=== PATIENT | male | born 1980 | race Caucasian/White ===

== ENCOUNTER 2021-04-02 13:32 | Emergency (ER) | payer SELFPAY ==
[~2021-04-02] VITALS: Ht 154.9 cm; Wt 9.1 kg
[2021-04-02 13:40] VITALS: BP_SYST 124
--- NOTE | 2021-04-02 14:31 | NUR ---
Patient to ER bed H1 to gown for evaluation. Side rails up.
--- NOTE | 2021-04-02 14:31 | NUR ---
PT CAME IN FROM HOME REQUESTING RX REFILL OF CELEXA 10MG AND ATORVASTATIN 20MG. PT IS AMBULATORY, [id number], VSS
--- NOTE | 2021-04-02 15:02 | NUR ---
Dr guerrero evaluating patient at bedside
[2021-04-02] MEDS ORDERED: ATOR20TA64 PO (15:06)
[2021-04-02] MEDS ORDERED: CEL20 PO (15:06)
[2021-04-02 15:15] VITALS: BP_SYST 124
--- NOTE | 2021-04-02 15:16 | NUR ---
Patient given written and verbal discharge instructions and verbalizes understanding. ER MD discussed with patient the results and treatment provided. Patient in stable condition. ID arm band removed. Rx of Atorvastatin and Citalopram given. Patient educated on pain management and to follow up with PMD. Pain Scale 0/10. Opportunity for questions provided and answered. Medication side effect fact sheet provided.
== END 2021-04-02 15:15 | disposition home or self-care (01) ==
LOC: SED 13:32
DX: F32.9 Major depressive disorder, single episode, unspecified (principal); I10 Essential (primary) hypertension; Z76.0 Encounter for issue of repeat prescription
CPT/HCPCS: 99281

== ENCOUNTER 2021-04-16 14:16 | Emergency (ER) | payer MEDICAID ==
[~2021-04-16] VITALS: Ht 157.5 cm; Wt 90.7 kg
[~2021-04-16 14:16] MED LIST: ATOR20TA64 PO; CEL20 PO
[2021-04-16 14:18] VITALS: BP_SYST 119
[2021-04-16 16:03] LABS: PROTHROMBIN TIME 9.9 SECS (9.5-12.5)
[2021-04-16 16:12] LABS: BASOPHILS % (AUTO) 0.5 % (0.0-2.0); EOSINOPHILS # (AUTO) 0.1 K/uL (0.0-0.4); EOSINOPHILS % (AUTO) 1.1 % (0.0-4.0); HEMOGLOBIN 13.4 g/dL (12.0-16.0); LYMPHOCYTES # (AUTO) 1.9 K/uL (1.0-5.5); LYMPHOCYTES % (AUTO) 23.6 % (20.5-51.5); MEAN CORPUSCULAR HEMOGLOBIN 28 pg (27-31); MEAN CORPUSCULAR HGB CONC 33 % (32-36); MEAN CORPUSCULAR VOLUME 84 fL (79.0-98.0); MONOCYTES # (AUTO) 0.4 K/uL (0.0-1.0); MONOCYTES % (AUTO) 4.9 % (1.7-9.3); NEUTROPHILS # (AUTO) 5.5 K/uL (1.8-7.7); NEUTROPHILS % (AUTO) 69.9 % (40.0-70.0); PLATELET COUNT (AUTO) 284 K/uL (130-430); RED BLOOD CELL COUNT(AUTO) 4.79 MIL/uL (4.2-6.2); RED CELL DISTRIBUTION WIDTH 14.2 % (9.0-15.0); WHITE BLOOD COUNT (AUTO) 7.9 K/uL (4.8-10.8)
[2021-04-16 16:47] LABS: BILIRUBIN,URINE 1+ (NEGATIVE); BLOOD, URINE 3+ (NEGATIVE); CLARITY/URINE CLOUDY (CLEAR); COLOR,URINE RED (YELLOW); GLUCOSE,URINE NEGATIVE (NEGATIVE); KETONES,URINE TRACE (NEGATIVE); LEUKOCYTE ESTERASE ,URINE TRACE (NEGATIVE); NITRITE, URINE NEGATIVE (NEGATIVE); PROTEIN URINE 1+ (NEGATIVE); UROBILINOGEN,URINE 0.2 (0.2-1.0)
[2021-04-16 17:20] VITALS: BP_SYST 131
[2021-04-16 17:40] LABS: BACTERIA,URINE FEW /HPF (None Seen); MUCUS,URINE None Seen /LPF (None Seen); RBC,URINE >100 /HPF (0-3)
== END 2021-04-16 17:20 | disposition home or self-care (01) ==
LOC: SED 14:16 → EDSEX 14:16 → SED 17:20
DX: N93.8 Other specified abnormal uterine and vaginal bleeding (principal); I10 Essential (primary) hypertension; F32.A Depression, unspecified; Z79.899 Other long term (current) drug therapy
CPT/HCPCS: 36415; 76857; 81000; 81025; 84702; 85025; 85610-TC; 85730-TC; 86900; 86901; 87086; 99284